=== PATIENT | male | born 2000 | race Caucasian/White ===

== ENCOUNTER 2021-03-04 10:24 | Emergency (ER) | payer SELFPAY ==
[2021-03-04 10:37] VITALS: BP 133/74; PULSE 62; RESP 16; TEMP 36.3; O2SAT 98
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
== END 2021-03-04 11:43 | disposition home or self-care (01) ==
PROVIDERS: Emergency Provider Nurse Practitioner Family
DX: S86.811A Strain of other muscle(s) and tendon(s) at lower leg level, right leg, initial encounter (principal); X58.XXXA Exposure to other specified factors, initial encounter
CPT/HCPCS: 99213; G0463